=== PATIENT | female | born 1955 | race Caucasian/White ===

== ENCOUNTER 2023-06-12 13:11 | Emergency (ER) | payer SELFPAY | END 2023-06-12 13:50 | disposition home or self-care (01) | LOC: CSHERS 13:11 | DX: S61.251A Open bite of left index finger without damage to nail, initial encounter (principal); S61.253A Open bite of left middle finger without damage to nail, initial encounter; W55.01XA Bitten by cat, initial encounter | CPT/HCPCS: 99283 ==